=== PATIENT | male | born 1980 ===

== ENCOUNTER → 2017-03-28 | Outpatient (CLI) | payer BC ==
[2017-03-28 13:35] LABS: Specimen Source PENIS
[2017-03-30 00:01] LABS: Source Penis
== END | disposition home or self-care (01) ==
LOC: LAB EV 13:32
PROVIDERS: Physician Assistant
DX: R21 Rash and other nonspecific skin eruption (principal)
CPT/HCPCS: 87070; 87147; 87205; 87491; 87591

== ENCOUNTER → 2020-08-30 | Outpatient (CLI) | payer OTHER | END | disposition home or self-care (01) | LOC: LAB 15:11 → LAB SHORT 15:11 | DX: D22.5 Melanocytic nevi of trunk (principal) | CPT/HCPCS: 88305 ==